=== PATIENT | male | born 1990 | race Caucasian/White ===

== ENCOUNTER 2022-07-04 01:34 | Emergency (ER) | payer BC, OTHER ==
[2022-07-04 01:47] VITALS: BMI 25.0
[2022-07-04] MEDS ORDERED: PANTOPRAZOLE SODIUM 40 MG VIAL IVPUSH ONE (01:53)
[2022-07-04 02:05] LABS: BASO % 0.7 % (0-2.0); EOS % 2.9 % (0-4.5); HEMATOCRIT 39.9 % (35.4-49); HEMOGLOBIN 13.9 GM/dL (11.7-16.9); LYMPH % 14.8 % (8-40); MCHC 34.8 g/dl (32.0-35.9); MEAN CELL VOLUME 83.2 fl (80-96); MEAN PLT VOLUME 7.4 fl (7.5-11.1); MONO % 8.8 % (3.8-10.2); NEUT % 72.8 % (42.8-82.8); PLATELET COUNT 244 10^3/uL (134-434); RDW 14.1 % (11.9-15.9); WHITE BLOOD COUNT 13.3 K/mm3 (4.0-10.0)
[2022-07-04 02:13] LABS: INR 1.29 (0.83-1.09); PROTHROMBIN TIME (PATIENT) 14.9 SEC (9.7-13.0)
[2022-07-04 02:15] LABS: ACTIVATED PTT 33.6 SECONDS (25.2-36.5)
[2022-07-04] MEDS ORDERED: PANTOPRAZOLE SODIUM 40 MG VIAL ONE (02:22)
[2022-07-04 02:37] LABS: POTASSIUM 3.5 mmol/L (3.5-5.1)
[2022-07-04 02:39] LABS: CALCIUM 9.5 mg/dL (8.5-10.1)
[2022-07-04 02:40] LABS: ALBUMIN 4.3 g/dl (3.4-5.0); BLOOD UREA NITROGEN 21.7 mg/dL (7-18); MAGNESIUM 1.8 mg/dL (1.8-2.4)
[2022-07-04 02:43] LABS: CREATININE 0.9 mg/dL (0.55-1.3); PHOSPHOROUS 3.5 mg/dL (2.5-4.9)
[2022-07-04 02:44] LABS: BILIRUBIN,TOTAL 0.9 mg/dL (0.2-1); TOT PROT 7.7 g/dl (6.4-8.2)
[2022-07-04] MEDS ORDERED: SODIUM CHLORIDE 1,000 ML IV STA (04:45)
[2022-07-04 05:40] VITALS: BP 128/70; PULSE 70; RESP 20; TEMP 98.9
== END 2022-07-04 07:45 | disposition home or self-care (01) ==
LOC: JER 01:34
PROC: 3E033GC Introduction of Other Therapeutic Substance into Peripheral Vein, Percutaneous Approach (ICD-10-PCS; principal; 2022-07-04)
PROC: 3E0337Z Introduction of Electrolytic and Water Balance Substance into Peripheral Vein, Percutaneous Approach (ICD-10-PCS; 2022-07-04)
DX: R11.2 Nausea with vomiting, unspecified (principal); F19.10 Other psychoactive substance abuse, uncomplicated; Y90.0 Blood alcohol level of less than 20 mg/100 ml; Z20.822 Contact with and (suspected) exposure to COVID-19
CPT/HCPCS: 0241U-QW; 36415; 70450-TC; 71045-TC-FY; 71260-TC; 74177-TC; 80053; 80307; 82272; 83690; 83735; 84100; 85025; 85610; 85730; 86850; 86900; 86901; 93005; 93010; 99285-25